=== PATIENT | female | born 1985 | race Two or more races ===

== ENCOUNTER 2018-12-28 19:03 | Emergency (ER) | payer OTHER ==
[~2018-12-28] VITALS: Ht 167.6 cm; Wt 90.3 kg
--- NOTE | 2018-12-28 19:20 | NUR ---
Pt is 11 wks and 6 days , came in for VB, started today, blood clots found in pads, heavily soaked with blood per pt. She is A, O/4, c/o abdominal cramping. Will continue to monitor.
--- NOTE | 2018-12-28 19:25 | NUR ---
Labs drawn, pelvic US in progress.
[2018-12-28 19:27] LABS: BASOPHILS % (AUTO) 0.5 % (0.0-2.0); EOSINOPHILS % (AUTO) 1.3 % (0.0-6.0); HEMATOCRIT 36 % (33-45); HEMOGLOBIN 12.2 g/dL (11.5-14.8); LYMPHOCYTES # (AUTO) 1.9 /CMM (0.8-4.8); LYMPHOCYTES % (AUTO) 17.4 % (20.0-44.0); MEAN CORPUSCULAR HGB CONC 34 g/dl (31.0-36.0); MEAN CORPUSCULAR VOLUME 85 fL (82-100); MONOCYTES # (AUTO) 0.7 /CMM (0.1-1.30); MONOCYTES % (AUTO) 6.6 % (2.0-12.0); NEUTROPHILS # (AUTO) 7.9 /CMM (1.8-8.9); NEUTROPHILS % (AUTO) 74.2 % (43.0-81.0); PLATELET COUNT (AUTO) 335 /CMM (150-450); RED BLOOD CELL COUNT(AUTO) 4.19 MIL/uL (4.0-5.2); WHITE BLOOD COUNT (AUTO) 10.7 K/uL (4.3-11.0)
[2018-12-28] MEDS ORDERED: ACETAMINOPHEN ES 500 MG TABLET ONE (19:27)
[2018-12-28] MEDS ORDERED: ACETAMINOPHEN ES 500 MG TABLET PO ONE (19:30)
[2018-12-28] MEDS ORDERED: IV NS 0.9% 1,000 ML BAG IV ONE (19:30)
[2018-12-28 19:49] LABS: CALCIUM, SERUM 8.7 mg/dL (8.5-10.1); CREATININE 0.6 mg/dL (0.6-1.3); POTASSIUM 3.8 mmol/L (3.5-5.1)
[2018-12-28 20:15] LABS: ALBUMIN 3.5 g/dL (3.4-5.0); BILIRUBIN,DIRECT 0.1 mg/dL (0.0-0.2); BILIRUBIN,TOTAL 0.2 mg/dL (0.2-1.0); TOTAL PROTEIN, SERUM 7.5 g/dL (6.4-8.2)
--- NOTE | 2018-12-28 20:30 | NUR ---
Pt states she has the urge to void but unable to at this time, . notified, In & Out ordered.
--- NOTE | 2018-12-28 20:50 | NUR ---
herrmann Cath 15F inserted, 800 ml urine out. pt feels relieved
--- NOTE | 2018-12-28 20:55 | NUR ---
No VB noted at this time
[2018-12-28 20:58] VITALS: BP 127/76
--- NOTE | 2018-12-28 20:59 | NUR ---
Patient discharged to home in stable condition. Written and verbal after care instructions and prescription given. Patient verbalizes understanding of instruction.IV removed. Catheter intact and site benign. Pressure and 4x4 applied to site. No bleeding noted. Pt ambulatory with a steady gait
== END 2018-12-28 20:59 | disposition home or self-care (01) ==
LOC: ER 19:05
DX: O20.0 Threatened abortion (principal); Z60.2 Problems related to living alone; Z3A.11 11 weeks gestation of pregnancy
CPT/HCPCS: 36415; 76805-TC; 80048-TC; 80076-TC; 84702-TC; 85025-TC; 85730-TC; J7030